=== PATIENT | female | born 1975 ===

== ENCOUNTER 2024-05-04 04:19 | Day surgery (SDC) | payer BC, OTHER ==
[2024-05-01 12:53] VITALS: BMI 27.4
[2024-05-04] MEDS ORDERED: MIDAZOLAM HCL 2 MG/2 ML SINGLE DOSE VIAL ONE (09:54)
[2024-05-04] MEDS ORDERED: LIDOCAINE HCL/PF 2% SDV 5ML VIAL ONE (09:54)
[2024-05-04] MEDS ORDERED: PROPOFOL 20 ML ONE (09:54)
[2024-05-04] MEDS ORDERED: ceFAZolin SODIUM 1 GM VIAL ONE (11:19)
[2024-05-04] MEDS ORDERED: KETOROLAC TROMETHAMINE 30 MG/1 ML VIAL ONE (11:19)
[2024-05-04] MEDS ORDERED: ONDANSETRON 4 MG/2 ML VIAL ONE (11:19)
[2024-05-04] MEDS ORDERED: DEXAMETHASONE SOD PHOSPHATE 4 MG/1 ML VIAL ONE (11:19)
[2024-05-04] MEDS: ceFAZolin SODIUM 1 GM VIAL IVPB ONE (11:22)
[2024-05-04] MEDS ORDERED: oxyCODONE HCL 5 MG TABLET PO PRN ×2 (11:56)
[2024-05-04] MEDS ORDERED: ONDANSETRON 4 MG/2 ML VIAL IVPUSH PRN (11:56)
[2024-05-04] MEDS ORDERED: PROMETHAZINE HCL 25 MG/1 ML VIAL IVPB PRN (11:56)
[2024-05-04] MEDS ORDERED: LACTATED RINGERS SOLUTION 1,000 ML IV SCH (12:00)
[2024-05-04] MEDS: ACETAMINOPHEN 1000 MG/100 ML BAG IVPB ONE (12:12)
[2024-05-04 12:57] VITALS: RESP 16; TEMP 97.6
[2024-05-04 14:17] VITALS: BP 120/69; PULSE 69
== END 2024-05-04 14:17 | disposition home or self-care (01) ==
LOC: JASU-SURG 04:19
PROVIDERS: ATTEND Obstetrics & Gynecology
PROC: 0UDB8ZX Extraction of Endometrium, Via Natural or Artificial Opening Endoscopic, Diagnostic (ICD-10-PCS; principal; 2024-05-04 10:00)
DX: N92.0 Excessive and frequent menstruation with regular cycle (principal); D25.9 Leiomyoma of uterus, unspecified
CPT/HCPCS: 88305-TC; 94760; J0131